=== PATIENT | female | born 1980 | race Caucasian/White ===

== ENCOUNTER 2017-05-28 20:36 | Emergency (ER) | payer BC ==
--- NOTE | 2017-05-28 20:47 | EDM.PDOC ---
ED HPI GENERAL MEDICAL PROBLEM - General Chief Complaint: Abdominal Pain Stated Complaint: ABDOMINAL PAIN Time Seen by Provider: 05/28/17 20:46 - History of Present Illness INITIAL COMMENTS - FREE TEXT/NARRATIVE: HISTORY AND PHYSICAL: History of present illness: [36-year-old female presenting as a department with chief complaint of abdominal cramping with vaginal bleeding 1 day. Patient states that yesterday afternoon she began to have some abnormal menstrual bleeding. Her last normal menstrual period was at the end of April. The bleeding increased this morning to the point where she was going through a pad every 30-45 minutes. She reports passing some clots as well. Then around 1: 30 this afternoon the bleeding stopped and she began to have abdominal cramping. The pain at its worst was 8 out of 10 and sharp lower abdominal in nature. She states that she's had similar episodes like this before but not as severe. Patient has had a tubal ligation. She reports 2 C-sections. She does get her normal menstrual cycle. She denies any lightheadedness, dizziness, or syncope. She has no other symptoms including fever, nausea, vomiting, diarrhea, dysuria, chest pain, palpitations, or focal neurologic deficits.] Review of systems: As per history of present illness and below otherwise all systems reviewed and negative. Past medical history: As per history of present illness and as reviewed below otherwise noncontributory. Surgical history: As per history of present illness and as reviewed below otherwise noncontributory. Social history: No reported history of drug or alcohol abuse. Family history: As per history of present illness and as reviewed below otherwise noncontributory. Physical exam: HEENT: Atraumatic, normocephalic, pupils reactive, negative for conjunctival pallor or scleral icterus, mucous membranes moist, throat clear, neck supple, nontender, trachea midline. Lungs: Clear to auscultation, breath sounds equal bilaterally, chest nontender. Heart: S1S2, regular, negative for clicks, rubs, or JVD. Abdomen: Soft, nondistended, nontender. Negative for masses or hepatosplenomegaly. Negative for costovertebral tenderness. Pelvis: Stable nontender. Genitourinary: Trickling of blood out of cervical os and a small quarter sized clot in the vaginal canal. No adenxal tenderness on bimanual. Rectal: Deferred. Extremities: Atraumatic, negative for cords or calf pain. Neurovascular unremarkable. Neuro: Awake, alert, oriented. Cranial nerves II through XII unremarkable. Cerebellum unremarkable. Motor and sensory unremarkable throughout. Exam nonfocal. Diagnostics: [CBC, CMP, UA, UC,] Therapeutics: [1 L normal saline, 2 mg morphine IV] Impression: [Dysfunctional uterine bleeding] Plan: [CBC, CMP, and urinalysis were unremarkable. HCG was negative. Patient's pain was controlled with 2 mg of IV morphine. Did talk to Dr. Finney, [employer], and discussed patient with him. He stated that as long as her pain is under control and hCG was negative she can follow-up with him tomorrow in the clinic. Patient was informed of all this information and discussion was made of dysfunctional uterine bleeding. All questions were entertained and answered. Patient was discharged in good condition with prescription for Hayden 5-325 #10 and instructed to follow-up with Dr. Finney as well as return to emergency department if she any new or worsening symptoms. ] lower abdominal area Pain Score (Numeric/FACES): 7 - Related Data Allergies Allergy/AdvReac Type Severity Reaction Status Date / Time No Known Allergies Allergy Verified 05/28/17 20:48 Home Meds: Home Meds . [No Known Home Meds] 05/28/17 [History] ED ROS GENERAL - Review of Systems Review Of Systems: See Below ED EXAM, GENERAL - Physical Exam Exam: See Below Course - Vital Signs Last Recorded V/S: Last Vital Signs Temp 98.6 F 05/28/17 20:49 Pulse 110 H 05/28/17 20:49 Resp 18 05/28/17 20:49 BP 154/104 H 05/28/17 20:49 Pulse Ox 98 05/28/17 20:49 - Orders/Labs/Meds Orders: Active Orders 24 hr Category Date Time Status CULTURE URINE [RM] Stat Lab 05/28/17 20:50 Received Labs: Laboratory Tests 05/28/17 05/28/17 05/28/17 Range/Units 20:50 20:59 21:45 WBC 11.92 H (4.0-11.0) K/uL RBC 4.68 (4.30-5.90) M/uL Hgb 15.4 (12.0-16.0) g/dL Hct 42.7 (36.0-46.0) % MCV 91.2 (80.0-98.0) fL MCH 32.9 H (27.0-32.0) pg MCHC 36.1 (31.0-37.0) g/dL RDW Std Deviation 42.3 (28.0-62.0) fl RDW Coeff of Olivia 13 (11.0-15.0) % Plt Count 282 (150-400) K/uL MPV 9.80 (7.40-12.00) fL Neut % (Auto) 49.1 (48.0-80.0) % Lymph % (Auto) 39.5 (16.0-40.0) % Callahan % (Auto) 7.1 (0.0-15.0) % Eos % (Auto) 3.6 (0.0-7.0) % Baso % (Auto) 0.7 (0.0-1.5) % Neut # (Auto) 5.9 H (1.4-5.7) K/uL Lymph # (Auto) 4.7 H (0.6-2.4) K/uL Callahan # (Auto) 0.9 H (0.0-0.8) K/uL Eos # (Auto) 0.4 (0.0-0.7) K/uL Baso # (Auto) 0.1 (0.0-0.1) K/uL Nucleated RBC % 0.0 /100WBC Nucleated RBCs # 0 K/uL Sodium (136-146) mmol/L Potassium (3.5-5.1) mmol/L Chloride (98-110) mmol/L Carbon Dioxide (21-31) mmol/L BUN (6.0-23.0) mg/dL Creatinine (0.6-1.5) mg/dL Est Cr Clr Drug Dosing mL/min Estimated GFR (MDRD) ml/min Glucose (60-110) mg/dL Calcium (8.8-10.8) mg/dL Total Bilirubin (0.1-1.5) mg/dL AST (5-40) IU/L ALT (8-54) IU/L Alkaline Phosphatase (40-150) Total Protein (6.0-8.0) g/dL Albumin (3.5-5.0) g/dL Globulin (2.0-3.5) g/dL Albumin/Globulin Ratio (1.3-2.8) Urine Color RED Urine Appearance CLOUDY Urine pH 6.5 (5.0-8.0) Ur Specific Congers 1.025 (1.001-1.035) Urine Protein >=300 (NEGATIVE) mg/dL Urine Glucose (UA) NEGATIVE (NEGATIVE) mg/dL Urine Ketones NEGATIVE (NEGATIVE) mg/dL Urine Occult Blood LARGE H (NEGATIVE) Urine Nitrite NEGATIVE (NEGATIVE) Urine Bilirubin NEGATIVE (NEGATIVE) Urine Urobilinogen 1.0 (<2.0) EU/dL Ur Leukocyte Esterase NEGATIVE (NEGATIVE) Urine RBC TOO NUMBEROUS TO CT H (0-2/HPF) Urine WBC 0-2 (0-5/HPF) Ur Epithelial Cells OCCASIONAL (NONE-FEW) Urine Bacteria RARE (NEGATIVE) Urine HCG, Qual NEGATIVE (NEGATIVE) 05/28/17 Range/Units 22:05 WBC (4.0-11.0) K/uL RBC (4.30-5.90) M/uL Hgb (12.0-16.0) g/dL Hct (36.0-46.0) % MCV (80.0-98.0) fL MCH (27.0-32.0) pg MCHC (31.0-37.0) g/dL RDW Std Deviation (28.0-62.0) fl RDW Coeff of Olivai (11.0-15.0) % Plt Count (150-400) K/uL MPV (7.40-12.00) fL Neut % (Auto) (48.0-80.0) % Lymph % (Auto) (16.0-40.0) % Callahan % (Auto) (0.0-15.0) % Eos % (Auto) (0.0-7.0) % Baso % (Auto) (0.0-1.5) % Neut # (Auto) (1.4-5.7) K/uL Lymph # (Auto) (0.6-2.4) K/uL Callahan # (Auto) (0.0-0.8) K/uL Eos # (Auto) (0.0-0.7) K/uL Baso # (Auto) (0.0-0.1) K/uL Nucleated RBC % /100WBC Nucleated RBCs # K/uL Sodium 141 (136-146) mmol/L Potassium 4.0 (3.5-5.1) mmol/L Chloride 112 H (98-110) mmol/L Carbon Dioxide 23 (21-31) mmol/L BUN 10 (6.0-23.0) mg/dL Creatinine 0.9 (0.6-1.5) mg/dL Est Cr Clr Drug Dosing 68.35 mL/min Estimated GFR (MDRD) > 60.0 ml/min Glucose 111 H (60-110) mg/dL Calcium 9.3 (8.8-10.8) mg/dL Total Bilirubin 0.4 (0.1-1.5) mg/dL AST 30 (5-40) IU/L ALT 59 H (8-54) IU/L Alkaline Phosphatase 52 (40-150) Total Protein 6.8 (6.0-8.0) g/dL Albumin 4.2 (3.5-5.0) g/dL Globulin 2.6 (2.0-3.5) g/dL Albumin/Globulin Ratio 1.6 (1.3-2.8) Urine Color Urine Appearance Urine pH (5.0-8.0) Ur Specific Congers (1.001-1.035) Urine Protein (NEGATIVE) mg/dL Urine Glucose (UA) (NEGATIVE) mg/dL Urine Ketones (NEGATIVE) mg/dL Urine Occult Blood (NEGATIVE) Urine Nitrite (NEGATIVE) Urine Bilirubin (NEGATIVE) Urine Urobilinogen (<2.0) EU/dL Ur Leukocyte Esterase (NEGATIVE) Urine RBC (0-2/HPF) Urine WBC (0-5/HPF) Ur Epithelial Cells (NONE-FEW) Urine Bacteria (NEGATIVE) Urine HCG, Qual (NEGATIVE) Meds: Medications Discontinued Medications Generic Name Dose Route Start Last Admin Trade Name Freq PRN Reason Stop Dose Admin Sodium Chloride 1,000 mls @ 999 mls/hr 05/28/17 21:28 05/28/17 21:45 Normal Saline IV 05/28/17 22:28 999 mls/hr STAT ONE Administration Morphine Sulfate 2 mg 05/28/17 21:28 05/28/17 21:51 Morphine IVPUSH 05/28/17 21:29 2 mg ONETIME ONE Administration Departure - Departure Time of Disposition: 22:50 Disposition: Home, Self-Care 01 Condition: Good Clinical Impression: Dysfunctional uterine bleeding - Discharge Information Instructions: Abnormal Uterine Bleeding, [id number], Abnormal Uterine Bleeding Referrals: Geena Oconnor [Outside] Jackelin Louise DO [Primary Care Provider] - Forms: ED Department Discharge Additional Instructions: My general discharge The following information is given to patients seen in the emergency department who are being discharged to home. This information is to outline your options for follow-up care. We provide all patients seen in our emergency department with a follow-up referral. The need for follow-up, as well as the timing and circumstances, are variable depending upon the specifics of your emergency department visit. If you don't have a primary care physician on staff, we will provide you with a referral. We always advise you to contact your personal physician following an emergency department visit to inform them of the circumstance of the visit and for follow-up with them and/or the need for any referrals to a consulting specialist. The emergency department will also refer you to a specialist when appropriate. This referral assures that you have the opportunity for follow-up care with a specialist. All of these measure are taken in an effort to provide you with optimal care, which includes your follow-up. Under all circumstances we always encourage you to contact your private physician who remains a resource for coordinating your care. When calling for follow-up care, please make the office aware that this follow-up is from your recent emergency room visit. If for any reason you are refused follow-up, please contact the [facility] Emergency Department at and asked to speak to the emergency department charge nurse. [facility] [address] [place] [address] - My Orders Last 24 Hours: My Active Orders 05/28/17 20:50 CULTURE URINE [RM] Stat - Assessment/Plan Last 24 Hours: My Active Orders 05/28/17 20:50 CULTURE URINE [RM] Stat
[2017-05-28] MEDS ORDERED: Morphine 2 MG/ML Syringe IVPUSH ONE (21:28)
[2017-05-28] MEDS ORDERED: Sodium Chloride 0.9% 1,000 ML IV ONE (21:28)
[2017-05-28 22:31] LABS: CHLORIDE,CL 112 mmol/L (98-110); SODIUM,NA 141 mmol/L (136-146)
== END 2017-05-28 22:55 | disposition home or self-care (01) ==
LOC: MW.ED 20:36
DX: N93.8 Other specified abnormal uterine and vaginal bleeding (principal)
CPT/HCPCS: 80053; 81001; 81025; 85025; 87086; 96361; 96374; 99284; J2270; J7040